=== PATIENT | female | born 1940 | race Caucasian/White ===

== ENCOUNTER 2020-09-15 16:11 | Inpatient (IN) ==
[2020-09-15 18:09] LABS: ABS Basophils 0.1 10^3/ul (0-0.2); ABS Eosinophils 0.1 10^3/ul (0-0.6); ABS Lymphocytes 0.7 10^3/ul (1.0-4.8); ABS Monocytes 0.7 10^3/ul (0-0.8); ABS Neutrophils 9.3 10^3/ul (1.5-7.7); Eosinophil % 0.9 %; Hematocrit 33 % (35-47); Hemoglobin 10.8 g/dL (12.0-16.0); Lymphocyte % 6.5 %; Mean Corpuscular HGB Conc 33 g/dL (31-36); Mean Corpuscular Hemoglobin 31 pg (27-31); Mean Corpuscular Volume 93 fL (80-97); Mean Platelet Volume 6.8 fL (7.4-10.4); Platelet Count 482 10^3/uL (150-450); Red Blood Count 3.53 10^6 /uL (3.70-4.87); Red Cell Distribution Width 15 % (10-15); White Blood Count 10.9 10^3/uL (3.5-10.8)
[2020-09-15 18:14] LABS: INR 1.07 (0.82-1.09)
[2020-09-15 18:22] LABS: Urine Appearance Clear; Urine Bilirubin Negative (Negative); Urine Blood Negative (Negative); Urine Color Yellow; Urine Glucose Negative (Negative); Urine Ketones Negative (Negative); Urine Nitrite Negative (Negative); Urine Protein Negative (Negative); Urine Specific Gravity 1.024 (1.010-1.030); Urine Urobilinogen Negative (Negative)
[2020-09-15 18:26] LABS: Albumin 3.1 g/dL (3.2-5.2); BUN/Creatinine Ratio 53.7 (8-20); Calcium 9.3 mg/dL (8.6-10.3); EGFR African American 102.5 (>60); EGFR Non-African American 84.7 (>60); Magnesium 2.1 mg/dL (1.9-2.7); Potassium 4.2 mmol/L (3.5-5.0); Total Protein 6.9 g/dL (6.4-8.9)
[2020-09-15 18:27] LABS: Albumin/Globulin Ratio 0.8 (1-3); Globulin 3.8 g/dL (2-4); Total Bilirubin 0.6 mg/dL (0.2-1.0)
[2020-09-15] MEDS ORDERED: Ondansetron 4 mg VIAL 2 MG/ML 2 ml VIAL IV PRN (20:04)
[2020-09-15] MEDS ORDERED: Azithromycin 500 mg/250 ml NS 500 MG/250 ML BAG IVPB SCH (21:00)
[2020-09-15 21:31] LABS: Hematocrit 30 % (35-47); Hemoglobin 9.7 g/dL (12.0-16.0)
[2020-09-15 22:18] LABS: Influenza A Molecular Negative (Negative); Influenza B Molecular Negative (Negative)
[2020-09-15] MEDS: Heparin 5000 UNITS/ML 1 mL VIAL SUBCUT SCH (22:31)
[2020-09-16 00:09] LABS: Urine Appearance Cloudy; Urine Bilirubin Negative (Negative); Urine Blood 2+ (Negative); Urine Color Yellow; Urine Glucose Negative (Negative); Urine Ketones Negative (Negative); Urine Nitrite Negative (Negative); Urine Protein Negative (Negative); Urine Specific Gravity 1.024 (1.010-1.030); Urine Urobilinogen Positive (Negative)
[2020-09-16 00:16] LABS: Urine Bacteria Absent (Absent); Urine Red Blood Cell 3+(>10/hpf) (Absent); Urine Squamous Epithelial Cell Present (Absent); Urine White Blood Cell 2+(11-20/hpf) (Absent)
[2020-09-16 00:20] LABS: Activated Partial Thrombo Time 58.1 seconds (26.0-38.0); INR 1.1 (0.82-1.09)
[2020-09-16] MEDS: Lidocaine PATCH 5% PATCH TRANSDERM SCH ×2 (00:32→08:20)
[2020-09-16] MEDS: Heparin 5000 UNITS/ML 1 mL VIAL SUBCUT SCH ×3 (05:34→21:44)
[2020-09-16 06:35] LABS: ABS Basophils 0.1 10^3/ul (0-0.2); ABS Eosinophils 0.1 10^3/ul (0-0.6); ABS Lymphocytes 0.9 10^3/ul (1.0-4.8); ABS Monocytes 0.6 10^3/ul (0-0.8); ABS Neutrophils 7.1 10^3/ul (1.5-7.7); Eosinophil % 1.5 %; Hematocrit 28 % (35-47); Hemoglobin 9.2 g/dL (12.0-16.0); Lymphocyte % 10.4 %; Mean Corpuscular HGB Conc 33 g/dL (31-36); Mean Corpuscular Hemoglobin 31 pg (27-31); Mean Corpuscular Volume 92 fL (80-97); Mean Platelet Volume 6.8 fL (7.4-10.4); Platelet Count 398 10^3/uL (150-450); Red Blood Count 3.01 10^6 /uL (3.70-4.87); Red Cell Distribution Width 15 % (10-15); White Blood Count 8.8 10^3/uL (3.5-10.8)
[2020-09-16 06:48] LABS: BUN/Creatinine Ratio 53.7 (8-20); Calcium 8.5 mg/dL (8.6-10.3); EGFR African American 131.4 (>60); EGFR Non-African American 108.6 (>60); Potassium 3.9 mmol/L (3.5-5.0)
[2020-09-16] MEDS ORDERED: Lidocaine Patch REMOVE PATCH PATCH OFF ONE (08:30)
[2020-09-16] MEDS ORDERED: Aspirin EC 81 mg TAB.EC (enteric coated) PO SCH (09:00)
[2020-09-16 17:09] LABS: ABS Basophils 0.1 10^3/ul (0-0.2); ABS Eosinophils 0.1 10^3/ul (0-0.6); ABS Lymphocytes 0.7 10^3/ul (1.0-4.8); ABS Monocytes 0.7 10^3/ul (0-0.8); ABS Neutrophils 9.4 10^3/ul (1.5-7.7); Eosinophil % 0.6 %; Hematocrit 28 % (35-47); Hemoglobin 9.7 g/dL (12.0-16.0); Lymphocyte % 6.6 %; Mean Corpuscular HGB Conc 34 g/dL (31-36); Mean Corpuscular Hemoglobin 31 pg (27-31); Mean Corpuscular Volume 91 fL (80-97); Mean Platelet Volume 6.3 fL (7.4-10.4); Platelet Count 440 10^3/uL (150-450); Red Blood Count 3.07 10^6 /uL (3.70-4.87); Red Cell Distribution Width 15 % (10-15)
[2020-09-16] MEDS: Lidocaine Patch REMOVE PATCH PATCH OFF SCH (21:42)
[2020-09-17 04:53] LABS: ABS Basophils 0.1 10^3/ul (0-0.2); ABS Eosinophils 0.1 10^3/ul (0-0.6); ABS Lymphocytes 0.9 10^3/ul (1.0-4.8); ABS Monocytes 0.7 10^3/ul (0-0.8); ABS Neutrophils 8.4 10^3/ul (1.5-7.7); Eosinophil % 1.3 %; Hematocrit 27 % (35-47); Hemoglobin 8.9 g/dL (12.0-16.0); Lymphocyte % 8.8 %; Mean Corpuscular HGB Conc 33 g/dL (31-36); Mean Corpuscular Hemoglobin 30 pg (27-31); Mean Corpuscular Volume 92 fL (80-97); Mean Platelet Volume 6.8 fL (7.4-10.4); Platelet Count 426 10^3/uL (150-450); Red Blood Count 2.97 10^6 /uL (3.70-4.87); Red Cell Distribution Width 15 % (10-15); White Blood Count 10.3 10^3/uL (3.5-10.8)
[2020-09-17 05:10] LABS: BUN/Creatinine Ratio 43.9 (8-20); Calcium 8.7 mg/dL (8.6-10.3); EGFR African American 123.5 (>60); EGFR Non-African American 102.1 (>60)
[2020-09-17] MEDS: Heparin 5000 UNITS/ML 1 mL VIAL SUBCUT SCH ×3 (05:57→20:42)
[2020-09-17] MEDS: Lidocaine PATCH 5% PATCH TRANSDERM SCH (08:16)
[2020-09-17] MEDS: Lidocaine Patch REMOVE PATCH PATCH OFF SCH (20:43)
[2020-09-18 04:44] LABS: ABS Basophils 0.1 10^3/ul (0-0.2); ABS Eosinophils 0.1 10^3/ul (0-0.6); ABS Lymphocytes 0.8 10^3/ul (1.0-4.8); ABS Monocytes 0.9 10^3/ul (0-0.8); ABS Neutrophils 10.3 10^3/ul (1.5-7.7); Hematocrit 28 % (35-47); Hemoglobin 9.3 g/dL (12.0-16.0); Lymphocyte % 6.6 %; Mean Corpuscular HGB Conc 33 g/dL (31-36); Mean Corpuscular Hemoglobin 30 pg (27-31); Mean Corpuscular Volume 92 fL (80-97); Mean Platelet Volume 7.2 fL (7.4-10.4); Platelet Count 452 10^3/uL (150-450); Red Blood Count 3.08 10^6 /uL (3.70-4.87); Red Cell Distribution Width 15 % (10-15); White Blood Count 12.2 10^3/uL (3.5-10.8)
[2020-09-18] MEDS: Heparin 5000 UNITS/ML 1 mL VIAL SUBCUT SCH ×2 (05:18→14:25)
[2020-09-18] MEDS: Lidocaine PATCH 5% PATCH TRANSDERM SCH (08:41)
[2020-09-18] MEDS: Lidocaine Patch REMOVE PATCH PATCH OFF SCH (21:54)
[2020-09-19] MEDS: Lidocaine PATCH 5% PATCH TRANSDERM SCH (08:35)
[2020-09-19] MEDS: Lidocaine Patch REMOVE PATCH PATCH OFF SCH (19:40)
[2020-09-20 03:05] LABS: Urine Appearance Cloudy; Urine Bilirubin Negative (Negative); Urine Blood 2+ (Negative); Urine Color Amber; Urine Glucose Negative (Negative); Urine Ketones Negative (Negative); Urine Nitrite Positive (Negative); Urine Protein 1+(30 mg/dL) (Negative); Urine Specific Gravity 1.017 (1.010-1.030); Urine Urobilinogen Positive (Negative)
[2020-09-20 03:07] LABS: Urine Bacteria 1+ (Absent); Urine Red Blood Cell 1+(3-5/hpf) (Absent); Urine White Blood Cell 3+(>20/hpf) (Absent)
[2020-09-20 04:49] LABS: ABS Basophils 0.1 10^3/ul (0-0.2); ABS Eosinophils 0.1 10^3/ul (0-0.6); ABS Lymphocytes 0.8 10^3/ul (1.0-4.8); ABS Monocytes 0.6 10^3/ul (0-0.8); ABS Neutrophils 7.3 10^3/ul (1.5-7.7); Eosinophil % 1.5 %; Hematocrit 28 % (35-47); Hemoglobin 9.3 g/dL (12.0-16.0); Lymphocyte % 8.5 %; Mean Corpuscular HGB Conc 33 g/dL (31-36); Mean Corpuscular Hemoglobin 31 pg (27-31); Mean Corpuscular Volume 94 fL (80-97); Platelet Count 435 10^3/uL (150-450); Red Blood Count 3.01 10^6 /uL (3.70-4.87); Red Cell Distribution Width 15 % (10-15); White Blood Count 8.9 10^3/uL (3.5-10.8)
[2020-09-20 05:06] LABS: BUN/Creatinine Ratio 39.3 (8-20); Calcium 8.7 mg/dL (8.6-10.3); EGFR African American 114.2 (>60); EGFR Non-African American 94.4 (>60)
[2020-09-20] MEDS: Lidocaine PATCH 5% PATCH TRANSDERM SCH (07:20)
[2020-09-20] MEDS ORDERED: Magnesium Hydroxide LIQ 30 ML UDC PO ONE (10:57)
[2020-09-21 11:36] VITALS: BP 111/52
== END 2020-09-21 14:15 | disposition home health service (06) | DRG 536 ==
LOC: ED 16:11 → MED 19:58 → SSU 09-16 11:40
PROVIDERS: ADMIT Internal Medicine Interventional Cardiology; ATTEND Internal Medicine

== ENCOUNTER 2021-09-09 17:51 | Inpatient (IN) ==
[2021-09-09] MEDS ORDERED: Ondansetron 4 mg VIAL 2 MG/ML 2 ml VIAL IV PRN (20:45)
[2021-09-09 20:51] LABS: ABS Lymphocytes 0.7 10^3/ul (1.0-4.8); ABS Monocytes 0.5 10^3/ul (0-0.8); ABS Neutrophils 9.4 10^3/ul (1.5-7.7); Eosinophil % 0.1 %; Hematocrit 33 % (35-47); Hemoglobin 11.5 g/dL (12.0-16.0); Lymphocyte % 6.8 %; Mean Corpuscular HGB Conc 34 g/dL (31-36); Mean Corpuscular Hemoglobin 32 pg (27-31); Mean Corpuscular Volume 94 fL (80-97); Mean Platelet Volume 6.9 fL (7.4-10.4); Platelet Count 230 10^3/uL (150-450); Red Blood Count 3.56 10^6 /uL (3.70-4.87); Red Cell Distribution Width 13 % (10-15); White Blood Count 10.7 10^3/uL (3.5-10.8)
[2021-09-09] MEDS ORDERED: Lactated Ringers 1000 ml BAG 1,000 ML IV SCH (21:00)
[2021-09-09 21:06] LABS: Activated Partial Thrombo Time 31.7 seconds (26.0-38.0); INR 1.05 (0.86-1.15)
[2021-09-09 21:21] LABS: Albumin 3.8 g/dL (3.2-5.2); Albumin/Globulin Ratio 1.3 (1-3); Calcium 9.1 mg/dL (8.6-10.3); Potassium 4.2 mmol/L (3.5-5.0); Total Bilirubin 0.6 mg/dL (0.2-1.0); Total Protein 6.8 g/dL (6.4-8.9); eGFR CKD-EPI 92.4 (>60)
[2021-09-09 22:09] LABS: TSH Ultra Thyroid Stim Horm 3.13 mcIU/mL (0.34-5.60)
[2021-09-09 22:15] LABS: Osmolality Serum 270 mOsm/kg (275-295)
[2021-09-09] MEDS: Heparin 5000 UNITS/ML 1 mL VIAL SUBCUT SCH (22:30)
[2021-09-10 04:20] LABS: ABS Basophils 0.1 10^3/ul (0-0.2); ABS Lymphocytes 0.9 10^3/ul (1.0-4.8); ABS Monocytes 0.5 10^3/ul (0-0.8); ABS Neutrophils 7.5 10^3/ul (1.5-7.7); Hematocrit 30 % (35-47); Hemoglobin 10.1 g/dL (12.0-16.0); Lymphocyte % 9.6 %; Mean Corpuscular HGB Conc 34 g/dL (31-36); Mean Corpuscular Hemoglobin 32 pg (27-31); Mean Corpuscular Volume 93 fL (80-97); Platelet Count 199 10^3/uL (150-450); Red Cell Distribution Width 13 % (10-15); White Blood Count 8.9 10^3/uL (3.5-10.8)
[2021-09-10 04:26] LABS: INR 1.13 (0.86-1.15)
[2021-09-10] MEDS: Acetaminophen IV 1 GM/100ML 100 ML IV PRN ×2 (04:33→11:32)
[2021-09-10 04:52] LABS: Calcium 8.7 mg/dL (8.6-10.3); Potassium 4.3 mmol/L (3.5-5.0); eGFR CKD-EPI 94.2 (>60)
[2021-09-10] MEDS: Heparin 5000 UNITS/ML 1 mL VIAL SUBCUT SCH ×3 (06:35→22:23)
[2021-09-10 07:25] LABS: Urine Appearance Clear; Urine Bilirubin Negative (Negative); Urine Blood Negative (Negative); Urine Color Yellow; Urine Glucose Negative (Negative); Urine Ketones 1+ (Negative); Urine Nitrite Negative (Negative); Urine Protein Negative (Negative); Urine Specific Gravity 1.017 (1.002-1.030); Urine Urobilinogen Negative (Negative)
[2021-09-10 08:06] LABS: Urine Creatinine Concentration 49.22 mg/dL
[2021-09-10 08:52] LABS: Urine Osmo 643 mOsm/kg (150-1150)
[2021-09-10] MEDS ORDERED: Albuterol HFA INHALER 8 gm MDI INH PRN (08:54)
[2021-09-10] MEDS: Pantoprazole VIAL 40 MG VIAL IV SCH (11:26)
[2021-09-10] MEDS: NS 0.9% 1000 ml BAG 1,000 ML IV SCH (11:28)
[2021-09-10 14:30] LABS: Uric Acid 3.4 mg/dL (2.3-6.6)
[2021-09-10 18:23] LABS: Calcium 8.5 mg/dL (8.6-10.3); Potassium 4.1 mmol/L (3.5-5.0)
[2021-09-10 18:29] LABS: eGFR CKD-EPI 92.4 (>60)
[2021-09-11] MEDS: NS 0.9% 1000 ml BAG 1,000 ML IV SCH (03:14)
[2021-09-11 05:51] LABS: ABS Eosinophils 0.1 10^3/ul (0-0.6); ABS Lymphocytes 0.7 10^3/ul (1.0-4.8); ABS Monocytes 0.8 10^3/ul (0-0.8); ABS Neutrophils 5.9 10^3/ul (1.5-7.7); Eosinophil % 0.7 %; Hematocrit 25 % (35-47); Hemoglobin 8.5 g/dL (12.0-16.0); Lymphocyte % 9.7 %; Mean Corpuscular HGB Conc 34 g/dL (31-36); Mean Corpuscular Hemoglobin 32 pg (27-31); Mean Corpuscular Volume 95 fL (80-97); Mean Platelet Volume 7.8 fL (7.4-10.4); Platelet Count 145 10^3/uL (150-450); Red Blood Count 2.65 10^6 /uL (3.70-4.87); Red Cell Distribution Width 13 % (10-15); White Blood Count 7.5 10^3/uL (3.5-10.8)
[2021-09-11 06:10] LABS: Calcium 8.1 mg/dL (8.6-10.3); Magnesium 1.6 mg/dL (1.9-2.7); Potassium 3.9 mmol/L (3.5-5.0); eGFR CKD-EPI 93.7 (>60)
[2021-09-11] MEDS ORDERED: Magnesium Sulfate 2 gm BAG 2 GM/50 ML BAG IVPB ONE (06:24)
[2021-09-11 09:21] LABS: Hematocrit 28 % (35-47); Hemoglobin 9.4 g/dL (12.0-16.0)
[2021-09-11] MEDS: Pantoprazole VIAL 40 MG VIAL IV SCH (09:28)
[2021-09-11] MEDS ORDERED: Lidocaine 2% PF 5 ML VIAL ONE (11:57)
[2021-09-11] MEDS ORDERED: Propofol 10 MG/ML 20 ML BTL ONE (11:57)
[2021-09-11] MEDS ORDERED: fentaNYL 250 mcg/5 ml 50 MCG/ML 5 ml VIAL (250 MCG) ONE (11:57)
[2021-09-11] MEDS ORDERED: Rocuronium 50 mg VIAL 10 mg/ml 5 ml VIAL (50 mg) ONE (12:10)
[2021-09-11] MEDS ORDERED: Clindamycin 900 MG/D5W BAG 900 MG/50 ML BAG IVPB ONE (12:48)
[2021-09-11] MEDS ORDERED: Albumin Human 5% 12.5 GM/250 ML BTL IV ONE (13:21)
[2021-09-11] MEDS ORDERED: Ondansetron 4 mg VIAL 2 MG/ML 2 ml VIAL ONE (14:18)
[2021-09-11] MEDS ORDERED: Dexamethasone IV 4 MG/ML VIAL 1 ml VIAL ONE (14:18)
[2021-09-11] MEDS ORDERED: Acetaminophen IV 1 GM/100ML 100 ML IV ONE (14:48)
[2021-09-11] MEDS ORDERED: fentaNYL 100 mcg/2 ml 50 MCG/ML VIAL IV PRN (15:01)
[2021-09-11] MEDS ORDERED: Naloxone 0.4 mg VIAL 0.4 mg/ml 1 ml VIAL IV PRN (15:01)
[2021-09-11] MEDS ORDERED: Ondansetron 4 mg VIAL 2 MG/ML 2 ml VIAL IV PRN (15:01)
[2021-09-11] MEDS ORDERED: Phenylephrine 40 mcg/mL 10mL (400mcg) SYRINGE ONE (15:24)
[2021-09-11] MEDS ORDERED: Phenylephrine IV 10 MG/ML 1 ml VIAL ONE (15:24)
[2021-09-11] MEDS ORDERED: Bupivacaine 0.5% SDV PF 30ML VIAL ONE (15:40)
[2021-09-11 15:56] LABS: Hematocrit 23 % (35-47); Hemoglobin 7.8 g/dL (12.0-16.0); Platelet Count 127 10^3/uL (150-450)
[2021-09-11 22:06] LABS: Hematocrit 24 % (35-47)
[2021-09-11] MEDS: Clindamycin 600 MG/D5W BAG IV SCH (22:37)
[2021-09-12] MEDS: Clindamycin 600 MG/D5W BAG IV SCH ×2 (05:56→14:02)
[2021-09-12 06:03] LABS: Hematocrit 21 % (35-47); Hemoglobin 7.1 g/dL (12.0-16.0); Mean Platelet Volume 8.1 fL (7.4-10.4); Platelet Count 133 10^3/uL (150-450)
[2021-09-12 06:28] LABS: Calcium 8.5 mg/dL (8.6-10.3); Magnesium 2.2 mg/dL (1.9-2.7); Potassium 4.8 mmol/L (3.5-5.0); eGFR CKD-EPI 61.7 (>60)
[2021-09-12] MEDS: Pantoprazole VIAL 40 MG VIAL IV SCH (09:12)
[2021-09-12 12:03] LABS: Hematocrit 22 % (35-47); Hemoglobin 7.2 g/dL (12.0-16.0)
[2021-09-12] MEDS: Enoxaparin 40 MG/0.4 ML SYR SUBCUT SCH (13:03)
[2021-09-12] MEDS ORDERED: NS 0.9% 1000 ml BAG 1,000 ML IV SCH (15:45)
[2021-09-12 16:06] LABS: Hematocrit 23 % (35-47); Hemoglobin 7.5 g/dL (12.0-16.0)
[2021-09-12] MEDS: Acetaminophen IV 1 GM/100ML 100 ML IV PRN (16:58)
[2021-09-13 05:40] LABS: ABS Eosinophils 0.1 10^3/ul (0-0.6); ABS Lymphocytes 0.9 10^3/ul (1.0-4.8); ABS Neutrophils 7.3 10^3/ul (1.5-7.7); Eosinophil % 1.5 %; Hematocrit 23 % (35-47); Hemoglobin 7.9 g/dL (12.0-16.0); Lymphocyte % 9.4 %; Mean Corpuscular HGB Conc 35 g/dL (31-36); Mean Corpuscular Hemoglobin 34 pg (27-31); Mean Corpuscular Volume 97 fL (80-97); Mean Platelet Volume 7.7 fL (7.4-10.4); Platelet Count 144 10^3/uL (150-450); Red Blood Count 2.33 10^6 /uL (3.70-4.87); Red Cell Distribution Width 14 % (10-15); White Blood Count 9.4 10^3/uL (3.5-10.8)
[2021-09-13 06:15] LABS: Calcium 8.4 mg/dL (8.6-10.3); Potassium 4.6 mmol/L (3.5-5.0); eGFR CKD-EPI 68.8 (>60)
[2021-09-13] MEDS: Pantoprazole VIAL 40 MG VIAL IV SCH (08:01)
[2021-09-13] MEDS: Acetaminophen IV 1 GM/100ML 100 ML IV PRN ×2 (12:18→20:14)
[2021-09-13] MEDS: Enoxaparin 40 MG/0.4 ML SYR SUBCUT SCH (12:18)
[2021-09-13] MEDS ORDERED: Magnesium Hydroxide LIQ 30 ML UDC PO PRN (21:57)
[2021-09-13] MEDS ORDERED: Senna TAB 8.6 mg TAB PO ONE (21:57)
[2021-09-13] MEDS ORDERED: Senna TAB 8.6 mg TAB PO PRN (22:02)
[2021-09-14 06:09] LABS: ABS Eosinophils 0.1 10^3/ul (0-0.6); ABS Lymphocytes 1.1 10^3/ul (1.0-4.8); ABS Monocytes 0.7 10^3/ul (0-0.8); ABS Neutrophils 4.8 10^3/ul (1.5-7.7); Eosinophil % 1.1 %; Hematocrit 19 % (35-47); Lymphocyte % 16.3 %; Mean Corpuscular HGB Conc 36 g/dL (31-36); Mean Corpuscular Hemoglobin 36 pg (27-31); Mean Corpuscular Volume 98 fL (80-97); Mean Platelet Volume 7.7 fL (7.4-10.4); Nucleated Red Blood Cells % 0.1; Platelet Count 158 10^3/uL (150-450); Red Blood Count 1.96 10^6 /uL (3.70-4.87); Red Cell Distribution Width 14 % (10-15); White Blood Count 6.8 10^3/uL (3.5-10.8)
[2021-09-14 06:21] LABS: Calcium 8.3 mg/dL (8.6-10.3); Potassium 4.3 mmol/L (3.5-5.0); eGFR CKD-EPI 88.7 (>60)
[2021-09-14 14:31] LABS: Hematocrit 22 % (35-47); Hemoglobin 7.6 g/dL (12.0-16.0)
[2021-09-14] MEDS: Enoxaparin 40 MG/0.4 ML SYR SUBCUT SCH (15:33)
[2021-09-15 05:35] LABS: ABS Eosinophils 0.1 10^3/ul (0-0.6); ABS Lymphocytes 1.1 10^3/ul (1.0-4.8); ABS Monocytes 0.9 10^3/ul (0-0.8); ABS Neutrophils 5.1 10^3/ul (1.5-7.7); Eosinophil % 0.8 %; Hematocrit 21 % (35-47); Lymphocyte % 14.9 %; Mean Corpuscular HGB Conc 34 g/dL (31-36); Mean Corpuscular Hemoglobin 33 pg (27-31); Mean Corpuscular Volume 97 fL (80-97); Mean Platelet Volume 7.3 fL (7.4-10.4); Nucleated Red Blood Cells % 0.1; Platelet Count 190 10^3/uL (150-450); Red Cell Distribution Width 14 % (10-15); White Blood Count 7.1 10^3/uL (3.5-10.8)
[2021-09-15 06:03] LABS: Calcium 8.4 mg/dL (8.6-10.3); Potassium 4.5 mmol/L (3.5-5.0); eGFR CKD-EPI 91.6 (>60)
[2021-09-15 14:39] LABS: Hematocrit 22 % (35-47); Hemoglobin 7.9 g/dL (12.0-16.0)
[2021-09-15] MEDS ORDERED: NS 0.9% 1000 ml BAG 1,000 ML IV ONE (14:59)
[2021-09-15] MEDS: Enoxaparin 40 MG/0.4 ML SYR SUBCUT SCH (15:11)
[2021-09-15] MEDS ORDERED: NS 0.9% 1000 ml BAG 1,000 ML IV SCH ×3 (16:30→17:40)
[2021-09-16 04:50] LABS: Hematocrit 25 % (35-47); Hemoglobin 9.3 g/dL (12.0-16.0); Mean Corpuscular HGB Conc 37 g/dL (31-36); Mean Corpuscular Hemoglobin 36 pg (27-31); Mean Corpuscular Volume 98 fL (80-97); Mean Platelet Volume 7.1 fL (7.4-10.4); Platelet Count 228 10^3/uL (150-450); Red Blood Count 2.57 10^6 /uL (3.70-4.87); Red Cell Distribution Width 15 % (10-15)
[2021-09-16 05:18] LABS: Calcium 8.3 mg/dL (8.6-10.3); Potassium 4.7 mmol/L (3.5-5.0); eGFR CKD-EPI 87.4 (>60)
[2021-09-16] MEDS ORDERED: Enoxaparin 40 MG/0.4 ML SYR SUBCUT SCH (15:00)
[2021-09-17 06:08] LABS: ABS Monocytes 1.1 10^3/ul (0-0.8); ABS Neutrophils 7.2 10^3/ul (1.5-7.7); ABS Nucleated RBC 0.1 10^3/ul; Hematocrit 26 % (35-47); Hemoglobin 8.9 g/dL (12.0-16.0); Lymphocyte % 10.9 %; Mean Corpuscular HGB Conc 34 g/dL (31-36); Mean Corpuscular Hemoglobin 33 pg (27-31); Mean Corpuscular Volume 96 fL (80-97); Mean Platelet Volume 7.1 fL (7.4-10.4); Nucleated Red Blood Cells % 1.4; Platelet Count 286 10^3/uL (150-450); Red Cell Distribution Width 15 % (10-15); White Blood Count 9.4 10^3/uL (3.5-10.8)
[2021-09-17 06:27] LABS: Calcium 8.7 mg/dL (8.6-10.3); Potassium 4.7 mmol/L (3.5-5.0); eGFR CKD-EPI 79.9 (>60)
[2021-09-17 11:14] VITALS: BP 95/59
== END 2021-09-17 10:00 | DRG 481 ==
LOC: ED 17:51 → EDHOLD 20:39 → SUATTDRO 20:39 → SSU 23:42
PROVIDERS: ADMIT Hospitalist; ATTEND Student in an Organized Health Care Education/Training Program

== ENCOUNTER 2021-09-17 08:18 | Inpatient (IN) ==
[2021-09-17] MEDS ORDERED: Senna TAB 8.6 mg TAB PO PRN (15:29)
[2021-09-17] MEDS: Enoxaparin 40 MG/0.4 ML SYR SUBCUT SCH (16:12)
[2021-09-17] MEDS ORDERED: Magnesium Hydroxide LIQ 30 ML UDC PO PRN (19:07)
[2021-09-18 13:52] LABS: Urine Appearance Cloudy; Urine Bilirubin Negative (Negative); Urine Blood 1+ (Negative); Urine Color Amber; Urine Glucose Negative (Negative); Urine Ketones Negative (Negative); Urine Nitrite Negative (Negative); Urine Protein 1+(30 mg/dL) (Negative); Urine Specific Gravity 1.018 (1.002-1.030); Urine Urobilinogen Negative (Negative)
[2021-09-18 14:00] LABS: Urine Bacteria 3+ (Absent); Urine Red Blood Cell Trace(0-2/hpf) (Absent); Urine Squamous Epithelial Cell Present (Absent); Urine Transitional Epithelial Present (Absent); Urine White Blood Cell 3+(>20/hpf) (Absent)
[2021-09-18] MEDS: Enoxaparin 40 MG/0.4 ML SYR SUBCUT SCH (16:19)
[2021-09-18] MEDS: Sulfamethox/Trimethoprim DS TAB 800/160 mg PO SCH (21:04)
[2021-09-19 06:50] LABS: Hematocrit 28 % (35-47); Hemoglobin 9.7 g/dL (12.0-16.0); Mean Corpuscular HGB Conc 35 g/dL (31-36); Mean Corpuscular Hemoglobin 35 pg (27-31); Mean Corpuscular Volume 100 fL (80-97); Mean Platelet Volume 7.6 fL (7.4-10.4); Platelet Count 333 10^3/uL (150-450); Red Blood Count 2.77 10^6 /uL (3.70-4.87); Red Cell Distribution Width 15 % (10-15); White Blood Count 8.4 10^3/uL (3.5-10.8)
[2021-09-19 07:06] LABS: ABS Lymphocytes 0.9 10^3/ul (1.0-4.8); ABS Monocytes 0.8 10^3/ul (0-0.8); ABS Neutrophils 6.5 10^3/ul (1.5-7.7); Eosinophil % 0.5 %; Lymphocyte % 11.3 %
[2021-09-19 07:39] LABS: Albumin 3.2 g/dL (3.2-5.2); Albumin/Globulin Ratio 1.2 (1-3); Calcium 8.8 mg/dL (8.6-10.3); Globulin 2.7 g/dL (2-4); Potassium 4.1 mmol/L (3.5-5.0); Total Bilirubin 1.5 mg/dL (0.2-1.0); Total Protein 5.9 g/dL (6.4-8.9); eGFR CKD-EPI 71.8 (>60)
[2021-09-19] MEDS: Sulfamethox/Trimethoprim DS TAB 800/160 mg PO SCH ×2 (08:08→20:43)
[2021-09-19 08:16] LABS: Anisocytosis 1+; Macrocytosis 1+; Polychromasia 2+
[2021-09-19 08:17] LABS: ABS Nucleated RBC 0.5 10^3/ul; Nucleated Red Blood Cells % 5.6
[2021-09-19] MEDS: D5NS 0.9% 1000 ml BAG 1,000 ML IV SCH (11:49)
[2021-09-19] MEDS: Enoxaparin 40 MG/0.4 ML SYR SUBCUT SCH (16:39)
[2021-09-20] MEDS: D5NS 0.9% 1000 ml BAG 1,000 ML IV SCH (01:23)
[2021-09-20] MEDS: Sulfamethox/Trimethoprim DS TAB 800/160 mg PO SCH ×2 (09:25→20:25)
[2021-09-20] MEDS: Enoxaparin 40 MG/0.4 ML SYR SUBCUT SCH (16:31)
[2021-09-21] MEDS: Sulfamethox/Trimethoprim DS TAB 800/160 mg PO SCH ×2 (07:39→20:42)
[2021-09-21] MEDS ORDERED: Albuterol HFA INHALER 8 gm MDI INH PRN (11:39)
[2021-09-21] MEDS: D5NS 0.9% 1000 ml BAG 1,000 ML IV SCH (15:12)
[2021-09-21] MEDS: Enoxaparin 40 MG/0.4 ML SYR SUBCUT SCH (16:19)
[2021-09-22] MEDS: D5NS 0.9% 1000 ml BAG 1,000 ML IV SCH (05:25)
[2021-09-22] MEDS: Sulfamethox/Trimethoprim DS TAB 800/160 mg PO SCH ×2 (07:43→20:15)
[2021-09-22] MEDS: SPIRIVA Respimat (tiotropium) 2.5 mcg/inh Inhaler INH SCH (07:51)
[2021-09-22] MEDS: Enoxaparin 40 MG/0.4 ML SYR SUBCUT SCH (16:54)
[2021-09-22 20:50] LABS: Hematocrit 28 % (35-47); Hemoglobin 9.4 g/dL (12.0-16.0); Mean Corpuscular HGB Conc 33 g/dL (31-36); Mean Corpuscular Hemoglobin 33 pg (27-31); Mean Corpuscular Volume 101 fL (80-97); Mean Platelet Volume 7.9 fL (7.4-10.4); Platelet Count 335 10^3/uL (150-450); Red Blood Count 2.81 10^6 /uL (3.70-4.87); Red Cell Distribution Width 15 % (10-15); White Blood Count 9.4 10^3/uL (3.5-10.8)
[2021-09-22 21:15] LABS: Anisocytosis 1+; Macrocytosis 1+; Polychromasia 1+
[2021-09-22 21:16] LABS: ABS Basophils 0.1 10^3/ul (0-0.2); ABS Lymphocytes 0.5 10^3/ul (1.0-4.8); ABS Monocytes 0.4 10^3/ul (0-0.8); ABS Neutrophils 8.4 10^3/ul (1.5-7.7); ABS Nucleated RBC 1.7 10^3/ul; Eosinophil % 0.1 %; Lymphocyte % 5.4 %; Nucleated Red Blood Cells % 17.5
[2021-09-23] MEDS: SPIRIVA Respimat (tiotropium) 2.5 mcg/inh Inhaler INH SCH (09:33)
[2021-09-23] MEDS: Sulfamethox/Trimethoprim DS TAB 800/160 mg PO SCH (09:50)
[2021-09-23 13:09] LABS: Hematocrit 31 % (35-47); Hemoglobin 10.3 g/dL (12.0-16.0); Mean Corpuscular HGB Conc 34 g/dL (31-36); Mean Corpuscular Hemoglobin 35 pg (27-31); Mean Corpuscular Volume 104 fL (80-97); Mean Platelet Volume 8.2 fL (7.4-10.4); Platelet Count 328 10^3/uL (150-450); Red Blood Count 2.94 10^6 /uL (3.70-4.87); Red Cell Distribution Width 16 % (10-15)
[2021-09-23 13:10] LABS: PCO2 Arterial 31 mmHg (35-45)
[2021-09-23 13:15] LABS: ABS Lymphocytes 0.6 10^3/ul (1.0-4.8); ABS Monocytes 0.4 10^3/ul (0-0.8); ABS Neutrophils 7.9 10^3/ul (1.5-7.7); Eosinophil % 0.2 %; Lymphocyte % 6.5 %
[2021-09-23 13:22] LABS: PO2 Arterial 51 mmHg (80-100)
[2021-09-23 13:41] LABS: Albumin 3.5 g/dL (3.2-5.2); Albumin/Globulin Ratio 1.3 (1-3); Calcium 9.1 mg/dL (8.6-10.3); Globulin 2.7 g/dL (2-4); Potassium 4.3 mmol/L (3.5-5.0); Total Bilirubin 1.1 mg/dL (0.2-1.0); Total Protein 6.2 g/dL (6.4-8.9); eGFR CKD-EPI 52.8 (>60)
[2021-09-23 13:47] LABS: ABS Nucleated RBC 2.5 10^3/ul; Nucleated Red Blood Cells % 27.8
[2021-09-23] MEDS ORDERED: Iodixanol (CONTRAST) 320 MG/ML 100 ML SDV IV ONE (13:55)
[2021-09-23 14:26] LABS: Anisocytosis 2+; Hypochromasia 2+; Polychromasia 1+
[2021-09-23 15:15] VITALS: BP 107/60
== END 2021-09-23 15:33 | disposition short-term general hospital (02) | DRG 560 ==
LOC: PMRU 13:25 → ICU 09-23 13:13 → UNDODISIN 09-23 15:24
PROVIDERS: ADMIT Physical Medicine & Rehabilitation; ATTEND Physical Medicine & Rehabilitation

== ENCOUNTER 2021-09-23 15:34 | Inpatient (IN) ==
[2021-09-23] MEDS ORDERED: Furosemide 20 mg/2 ml IV VIAL IV ONE (16:59)
[2021-09-23] MEDS ORDERED: Acetylcysteine INHALATION SOL 200 MG/ML NEB.SOLN 10 ML INH PRN (17:25)
[2021-09-23] MEDS ORDERED: Norepinephrine 16MCG/ML BAGD5W 4,000 MCG/250 ML BAG IV SCH (23:00)
[2021-09-24] MEDS: Albuterol 2.5mg/3 ml (0.083%) NEB.SOLN INH SCH ×3 (00:44→14:23)
[2021-09-24 02:17] LABS: PCO2 Arterial 28 mmHg (35-45)
[2021-09-24 02:20] LABS: PO2 Arterial 59 mmHg (80-100)
[2021-09-24 05:10] LABS: Hematocrit 30 % (35-47); Hemoglobin 9.9 g/dL (12.0-16.0); Mean Corpuscular HGB Conc 33 g/dL (31-36); Mean Corpuscular Hemoglobin 33 pg (27-31); Mean Corpuscular Volume 101 fL (80-97); Mean Platelet Volume 8.2 fL (7.4-10.4); Platelet Count 308 10^3/uL (150-450); Red Blood Count 2.99 10^6 /uL (3.70-4.87); Red Cell Distribution Width 15 % (10-15); White Blood Count 10.1 10^3/uL (3.5-10.8)
[2021-09-24 05:18] LABS: ABS Lymphocytes 0.6 10^3/ul (1.0-4.8); ABS Monocytes 0.5 10^3/ul (0-0.8); ABS Neutrophils 8.9 10^3/ul (1.5-7.7); ABS Nucleated RBC 1.3 10^3/ul; Eosinophil % 0.5 %; Lymphocyte % 5.9 %; Nucleated Red Blood Cells % 13.4
[2021-09-24 05:51] LABS: Albumin 3.4 g/dL (3.2-5.2); Albumin/Globulin Ratio 1.3 (1-3); Globulin 2.6 g/dL (2-4); Magnesium 2.3 mg/dL (1.9-2.7); Potassium 4.2 mmol/L (3.5-5.0); Total Bilirubin 1.1 mg/dL (0.2-1.0); eGFR CKD-EPI 46.9 (>60)
[2021-09-24] MEDS ORDERED: Furosemide 20 mg/2 ml IV VIAL IV SLOW PU ONE (07:42)
[2021-09-24] MEDS ORDERED: Vasopressin 100 UNITS in D5W 250 ml BAG 245 ML IV SCH (08:00)
[2021-09-24] MEDS: CMC:Selenium 200 mcg TAB (NF) PO SCH (09:50)
[2021-09-24] MEDS: Acetylcysteine 600mgCAP(RENAL) PO SCH ×2 (09:53→20:09)
[2021-09-24 12:11] LABS: Body Fluid Mono 6 %; Body Fluid NRBC 8; Body Fluid Other Cells 18; Body Fluid Total Cells Counted 200; Body Fluid WBC 52 /mcL
[2021-09-24 12:12] LABS: Body Fluid Appearance Cloudy; Body Fluid Color Yellow; Body Fluid Source Pleural Fluid
[2021-09-24] MEDS ORDERED: Albuterol 2.5mg/3 ml (0.083%) NEB.SOLN INH PRN (14:23)
[2021-09-24] MEDS ORDERED: Enoxaparin 40 MG/0.4 ML SYR SUBCUT SCH (18:00)
[2021-09-25 05:48] LABS: Hematocrit 29 % (35-47); Hemoglobin 9.4 g/dL (12.0-16.0); Mean Corpuscular HGB Conc 33 g/dL (31-36); Mean Corpuscular Hemoglobin 33 pg (27-31); Mean Corpuscular Volume 102 fL (80-97); Mean Platelet Volume 7.5 fL (7.4-10.4); Platelet Count 224 10^3/uL (150-450); Red Blood Count 2.82 10^6 /uL (3.70-4.87); Red Cell Distribution Width 16 % (10-15); White Blood Count 13.5 10^3/uL (3.5-10.8)
[2021-09-25 05:52] LABS: ABS Lymphocytes 0.6 10^3/ul (1.0-4.8); ABS Monocytes 0.3 10^3/ul (0-0.8); ABS Neutrophils 12.4 10^3/ul (1.5-7.7); ABS Nucleated RBC 0.6 10^3/ul; Eosinophil % 0.3 %; Lymphocyte % 4.7 %; Nucleated Red Blood Cells % 4.1
[2021-09-25 06:17] LABS: C Reactive Protein 93.19 mg/L (<8.01); Calcium 8.7 mg/dL (8.6-10.3); Magnesium 2.2 mg/dL (1.9-2.7); Potassium 3.9 mmol/L (3.5-5.0); eGFR CKD-EPI 43.3 (>60)
[2021-09-25] MEDS ORDERED: Dextrose 50% Syringe 50 ml 25 GM/50 ML SYRINGE IV PUSH PRN (07:22)
[2021-09-25] MEDS: CMC:Selenium 200 mcg TAB (NF) PO SCH (07:54)
[2021-09-25] MEDS: Acetylcysteine 600mgCAP(RENAL) PO SCH ×2 (07:54→23:03)
[2021-09-25] MEDS ORDERED: Furosemide 40 mg/4 ml IV VIAL IV SLOW PU ONE (09:50)
[2021-09-25 15:23] LABS: Glucose, BF 87 mg/dL
[2021-09-25 15:32] LABS: Fluid Type, Protein, Total PLEURAL FLUID; Total Protein, BF 1.6 g/dL
[2021-09-25 15:34] LABS: Lactate Dehydrogenase, BF 140 U/L
[2021-09-25] MEDS: Enoxaparin 30 MG/0.3 ML SYR SUBCUT SCH (17:09)
[2021-09-25] MEDS ORDERED: Lactated Ringers 500 ml BAG 500 ML IV SCH (20:00)
[2021-09-26] MEDS ORDERED: Linezolid 600 MG IVPREMIX(*) 600 MG/300 ML BAG IVPB ONE (00:17)
[2021-09-26 06:39] LABS: Hematocrit 27 % (35-47); Mean Corpuscular HGB Conc 33 g/dL (31-36); Mean Corpuscular Hemoglobin 34 pg (27-31); Mean Corpuscular Volume 102 fL (80-97); Mean Platelet Volume 8.1 fL (7.4-10.4); Platelet Count 188 10^3/uL (150-450); Red Blood Count 2.65 10^6 /uL (3.70-4.87); Red Cell Distribution Width 16 % (10-15); White Blood Count 11.4 10^3/uL (3.5-10.8)
[2021-09-26 07:00] LABS: ALT 93 U/L (7-52); AST 50 U/L (13-39); Albumin 2.9 g/dL (3.2-5.2); Albumin/Globulin Ratio 1.3 (1-3); Alkaline Phosphatase 110 U/L (35-149); Anion Gap 10 mmol/L (2-11); Blood Urea Nitrogen 56 mg/dL (6-24); C Reactive Protein 128.22 mg/L (<8.01); CO2 Carbon Dioxide 22 mmol/L (22-32); Calcium 8.6 mg/dL (8.6-10.3); Chloride 109 mmol/L (101-111); Globulin 2.3 g/dL (2-4); Glucose 51 mg/dL (70-100); Magnesium 2.2 mg/dL (1.9-2.7); Potassium 3.6 mmol/L (3.5-5.0); Sodium 141 mmol/L (135-145); Total Protein 5.2 g/dL (6.4-8.9); eGFR CKD-EPI 42.9 (>60)
[2021-09-26] MEDS ORDERED: Lactated Ringers 500 ml BAG 500 ML IV ONE (08:21)
[2021-09-26] MEDS ORDERED: Dextrose 50% VIAL 50 ml IV PUSH PRN (09:13)
[2021-09-26] MEDS ORDERED: Vasopressin 100 UNITS in D5W 250 ml BAG 245 ML IV SCH (09:30)
[2021-09-26 09:49] LABS: T4, Total 6.15 mcg/dL (6.09-12.23)
[2021-09-26 09:51] LABS: TSH Ultra Thyroid Stim Horm 2.89 mcIU/mL (0.34-5.60)
[2021-09-26 09:57] LABS: Total T3 31 ng/dL (87-178)
[2021-09-26] MEDS ORDERED: Cefepime ADVAN 1 GM in NS 0.9% 50 ML 50 ML IVPB SCH (10:00)
[2021-09-26 10:32] LABS: Phosphorus 4.5 mg/dL (2.5-5.0)
[2021-09-26] MEDS: Cefepime 1 GM in Dextrose 1 GM/50 ML BAG IV SCH ×2 (10:32→21:00)
[2021-09-26] MEDS: D5W 1000 ml BAG 1,000 ML IV SCH (10:32)
[2021-09-26 10:44] LABS: Folate > 20.00 ng/mL (5.90-24.80)
[2021-09-26 10:44] LABS: Urine Appearance Cloudy; Urine Bilirubin Negative (Negative); Urine Blood Negative (Negative); Urine Color Yellow; Urine Glucose Negative (Negative); Urine Ketones Negative (Negative); Urine Nitrite Negative (Negative); Urine Protein Negative (Negative); Urine Specific Gravity 1.017 (1.002-1.030); Urine Urobilinogen Negative (Negative)
[2021-09-26 10:45] LABS: Vitamin B12 > 1450 pg/mL (180-914)
[2021-09-26] MEDS: Linezolid 600 MG IVPREMIX(*) 600 MG/300 ML BAG IVPB SCH ×2 (10:51→21:00)
[2021-09-26] MEDS ORDERED: Norepinephrine 16MCG/ML BAGD5W 4,000 MCG/250 ML BAG IV SCH ×2 (11:00→18:14)
[2021-09-26] MEDS: CMC:Selenium 200 mcg TAB (NF) PO SCH (11:27)
[2021-09-26] MEDS: Thiamine 100 MG/ML 2 ml VIAL 250 MG in NS 0.9% 100 ml BAG 100 ML IV SCH (11:28)
[2021-09-26] MEDS: Acetylcysteine 600mgCAP(RENAL) PO SCH ×2 (11:28→21:00)
[2021-09-26] MEDS: Enoxaparin 30 MG/0.3 ML SYR SUBCUT SCH (17:10)
[2021-09-26 21:02] LABS: Venous Bicarbonate HCO3 22.7 mmol/L (24-28)
[2021-09-27 04:49] LABS: Hematocrit 29 % (35-47); Hemoglobin 9.9 g/dL (12.0-16.0); Mean Corpuscular HGB Conc 34 g/dL (31-36); Mean Corpuscular Hemoglobin 34 pg (27-31); Mean Corpuscular Volume 102 fL (80-97); Mean Platelet Volume 8.5 fL (7.4-10.4); Platelet Count 208 10^3/uL (150-450); Red Blood Count 2.89 10^6 /uL (3.70-4.87); Red Cell Distribution Width 17 % (10-15); White Blood Count 12.2 10^3/uL (3.5-10.8)
[2021-09-27 05:02] LABS: ABS Eosinophils 0.1 10^3/ul (0-0.6); ABS Lymphocytes 0.7 10^3/ul (1.0-4.8); ABS Monocytes 0.6 10^3/ul (0-0.8); ABS Neutrophils 10.7 10^3/ul (1.5-7.7); ABS Nucleated RBC 0.7 10^3/ul; Eosinophil % 0.8 %; Lymphocyte % 6.1 %; Nucleated Red Blood Cells % 5.9
[2021-09-27 05:15] LABS: Albumin/Globulin Ratio 1.2 (1-3); C Reactive Protein 124.83 mg/L (<8.01); Calcium 8.5 mg/dL (8.6-10.3); Globulin 2.6 g/dL (2-4); Magnesium 2.1 mg/dL (1.9-2.7); Potassium 3.5 mmol/L (3.5-5.0); Total Bilirubin 0.9 mg/dL (0.2-1.0); Total Protein 5.6 g/dL (6.4-8.9)
[2021-09-27] MEDS: Cefepime 1 GM in Dextrose 1 GM/50 ML BAG IV SCH ×2 (08:25→21:43)
[2021-09-27] MEDS: Acetylcysteine 600mgCAP(RENAL) PO SCH ×2 (08:48→20:04)
[2021-09-27] MEDS: CMC:Selenium 200 mcg TAB (NF) PO SCH (08:48)
[2021-09-27] MEDS: Thiamine 100 MG/ML 2 ml VIAL 250 MG in NS 0.9% 100 ml BAG 100 ML IV SCH (09:03)
[2021-09-27] MEDS: Linezolid 600 MG IVPREMIX(*) 600 MG/300 ML BAG IVPB SCH ×2 (09:41→21:46)
[2021-09-27] MEDS ORDERED: Norepinephrine 16MCG/ML BAGD5W 4,000 MCG/250 ML BAG IV SCH (14:57)
[2021-09-27] MEDS: Enoxaparin 30 MG/0.3 ML SYR SUBCUT SCH (17:32)
[2021-09-27] MEDS: D5W 1000 ml BAG 1,000 ML IV SCH (23:08)
[2021-09-28 04:39] LABS: ABS Basophils 0.1 10^3/ul (0-0.2); ABS Eosinophils 0.1 10^3/ul (0-0.6); ABS Lymphocytes 0.6 10^3/ul (1.0-4.8); ABS Monocytes 0.5 10^3/ul (0-0.8); ABS Neutrophils 8.3 10^3/ul (1.5-7.7); ABS Nucleated RBC 0.3 10^3/ul; Eosinophil % 1.5 %; Hematocrit 30 % (35-47); Hemoglobin 9.9 g/dL (12.0-16.0); Lymphocyte % 5.9 %; Mean Corpuscular HGB Conc 33 g/dL (31-36); Mean Corpuscular Hemoglobin 33 pg (27-31); Mean Corpuscular Volume 102 fL (80-97); Mean Platelet Volume 8.7 fL (7.4-10.4); Nucleated Red Blood Cells % 2.7; Platelet Count 180 10^3/uL (150-450); Red Blood Count 2.99 10^6 /uL (3.70-4.87); Red Cell Distribution Width 19 % (10-15); White Blood Count 9.6 10^3/uL (3.5-10.8)
[2021-09-28 05:25] LABS: Blood Urea Nitrogen 33 mg/dL (6-24); C Reactive Protein 96.28 mg/L (<8.01); CO2 Carbon Dioxide 20 mmol/L (22-32); Calcium 8.2 mg/dL (8.6-10.3); Chloride 103 mmol/L (101-111); Glucose 92 mg/dL (70-100); Sodium 132 mmol/L (135-145); eGFR CKD-EPI 70.8 (>60)
[2021-09-28 05:41] LABS: Anion Gap 9 mmol/L (2-11)
[2021-09-28] MEDS ORDERED: NS 0.9% 100 ml BAG 100 ML ONE (09:21)
[2021-09-28] MEDS: Acetylcysteine 600mgCAP(RENAL) PO SCH ×2 (09:38→21:55)
[2021-09-28] MEDS: Cefepime 1 GM in Dextrose 1 GM/50 ML BAG IV SCH ×2 (09:38→21:55)
[2021-09-28] MEDS: CMC:Selenium 200 mcg TAB (NF) PO SCH (09:43)
[2021-09-28] MEDS: Linezolid 600 MG IVPREMIX(*) 600 MG/300 ML BAG IVPB SCH ×2 (10:42→21:41)
[2021-09-28] MEDS: Thiamine 100 MG/ML 2 ml VIAL 250 MG in NS 0.9% 100 ml BAG 100 ML IV SCH (12:00)
[2021-09-28] MEDS: Enoxaparin 30 MG/0.3 ML SYR SUBCUT SCH (18:22)
[2021-09-29 07:14] LABS: ABS Eosinophils 0.1 10^3/ul (0-0.6); ABS Lymphocytes 0.4 10^3/ul (1.0-4.8); ABS Monocytes 0.3 10^3/ul (0-0.8); ABS Neutrophils 5.9 10^3/ul (1.5-7.7); ABS Nucleated RBC 0.2 10^3/ul; Eosinophil % 0.9 %; Hematocrit 29 % (35-47); Hemoglobin 10.2 g/dL (12.0-16.0); Lymphocyte % 5.9 %; Mean Corpuscular HGB Conc 35 g/dL (31-36); Mean Corpuscular Hemoglobin 36 pg (27-31); Mean Corpuscular Volume 103 fL (80-97); Nucleated Red Blood Cells % 2.9; Platelet Count 163 10^3/uL (150-450); Red Blood Count 2.86 10^6 /uL (3.70-4.87); Red Cell Distribution Width 19 % (10-15); White Blood Count 6.7 10^3/uL (3.5-10.8)
[2021-09-29 07:30] LABS: Calcium 8.4 mg/dL (8.6-10.3); Potassium 3.8 mmol/L (3.5-5.0); eGFR CKD-EPI 77.4 (>60)
[2021-09-29] MEDS: CMC:Selenium 200 mcg TAB (NF) PO SCH (08:39)
[2021-09-29] MEDS: Acetylcysteine 600mgCAP(RENAL) PO SCH ×2 (08:39→21:43)
[2021-09-29] MEDS: Cefepime 1 GM in Dextrose 1 GM/50 ML BAG IV SCH ×2 (10:00→23:03)
[2021-09-29] MEDS: Thiamine 100 MG/ML 2 ml VIAL 250 MG in NS 0.9% 100 ml BAG 100 ML IV SCH (10:48)
[2021-09-29] MEDS: Linezolid 600 MG IVPREMIX(*) 600 MG/300 ML BAG IVPB SCH (11:30)
[2021-09-29] MEDS: Enoxaparin 30 MG/0.3 ML SYR SUBCUT SCH (17:23)
[2021-09-30 06:35] LABS: C Reactive Protein 67.08 mg/L (<8.01); Calcium 8.6 mg/dL (8.6-10.3); Phosphorus 2.8 mg/dL (2.5-5.0); Potassium 3.8 mmol/L (3.5-5.0); eGFR CKD-EPI 83.9 (>60)
[2021-09-30 10:17] LABS: PCO2 Arterial 47 mmHg (35-45); PO2 Arterial 64 mmHg (80-100)
[2021-09-30] MEDS: Acetylcysteine 600mgCAP(RENAL) PO SCH ×2 (10:36→20:14)
[2021-09-30] MEDS: Cefepime 1 GM in Dextrose 1 GM/50 ML BAG IV SCH ×2 (10:36→21:29)
[2021-09-30] MEDS: CMC:Selenium 200 mcg TAB (NF) PO SCH (10:37)
[2021-09-30 10:38] LABS: ABS Lymphocytes 0.4 10^3/ul (1.0-4.8); ABS Monocytes 0.3 10^3/ul (0-0.8); ABS Neutrophils 4.4 10^3/ul (1.5-7.7); ABS Nucleated RBC 0.1 10^3/ul; Eosinophil % 0.9 %; Hematocrit 30 % (35-47); Hemoglobin 9.8 g/dL (12.0-16.0); Mean Corpuscular HGB Conc 33 g/dL (31-36); Mean Corpuscular Hemoglobin 33 pg (27-31); Mean Corpuscular Volume 101 fL (80-97); Mean Platelet Volume 8.5 fL (7.4-10.4); Nucleated Red Blood Cells % 1.8; Platelet Count 161 10^3/uL (150-450); Red Blood Count 2.98 10^6 /uL (3.70-4.87); Red Cell Distribution Width 18 % (10-15); White Blood Count 5.1 10^3/uL (3.5-10.8)
[2021-09-30 11:10] LABS: Albumin 2.6 g/dL (3.2-5.2); Direct Bilirubin 0.2 mg/dL (0.03-0.18); Globulin 2.5 g/dL (2-4); Indirect Bilirubin 0.6 mg/dL (0.3-1.0); Total Bilirubin 0.8 mg/dL (0.2-1.0); Total Protein 5.1 g/dL (6.4-8.9)
[2021-09-30] MEDS: Thiamine 100 MG/ML 2 ml VIAL 250 MG in NS 0.9% 100 ml BAG 100 ML IV SCH (12:25)
[2021-09-30 14:15] LABS: Urine Appearance Clear; Urine Bilirubin Negative (Negative); Urine Blood Negative (Negative); Urine Color Yellow; Urine Glucose 1+(50 mg/dL) (Negative); Urine Ketones Trace (Negative); Urine Nitrite Negative (Negative); Urine Protein Negative (Negative); Urine Specific Gravity 1.016 (1.002-1.030); Urine Urobilinogen Negative (Negative)
[2021-09-30] MEDS: Enoxaparin 30 MG/0.3 ML SYR SUBCUT SCH (16:38)
[2021-10-01 06:16] LABS: ABS Eosinophils 0.1 10^3/ul (0-0.6); ABS Lymphocytes 0.4 10^3/ul (1.0-4.8); ABS Monocytes 0.4 10^3/ul (0-0.8); ABS Neutrophils 4.7 10^3/ul (1.5-7.7); ABS Nucleated RBC 0.1 10^3/ul; Eosinophil % 0.9 %; Hematocrit 37 % (35-47); Hemoglobin 11.5 g/dL (12.0-16.0); Lymphocyte % 6.7 %; Mean Corpuscular HGB Conc 32 g/dL (31-36); Mean Corpuscular Hemoglobin 34 pg (27-31); Mean Corpuscular Volume 106 fL (80-97); Mean Platelet Volume 8.6 fL (7.4-10.4); Nucleated Red Blood Cells % 1.4; Platelet Count 129 10^3/uL (150-450); Red Blood Count 3.43 10^6 /uL (3.70-4.87); Red Cell Distribution Width 20 % (10-15); White Blood Count 5.5 10^3/uL (3.5-10.8)
[2021-10-01 06:48] LABS: CO2 Carbon Dioxide 21 mmol/L (22-32); Calcium 8.5 mg/dL (8.6-10.3); Chloride 105 mmol/L (101-111); Magnesium 2.1 mg/dL (1.9-2.7); Sodium 131 mmol/L (135-145)
[2021-10-01 06:52] LABS: Anion Gap 5 mmol/L (2-11)
[2021-10-01 06:53] LABS: Blood Urea Nitrogen 18 mg/dL (6-24); Glucose 80 mg/dL (70-100); eGFR CKD-EPI 85.4 (>60)
[2021-10-01] MEDS: CMC:Selenium 200 mcg TAB (NF) PO SCH (10:14)
[2021-10-01] MEDS: Cefepime 1 GM in Dextrose 1 GM/50 ML BAG IV SCH ×2 (10:14→21:46)
[2021-10-01] MEDS: Acetylcysteine 600mgCAP(RENAL) PO SCH ×2 (10:14→21:27)
[2021-10-01] MEDS: Thiamine 100 MG/ML 2 ml VIAL 250 MG in NS 0.9% 100 ml BAG 100 ML IV SCH (11:53)
[2021-10-01] MEDS: Enoxaparin 30 MG/0.3 ML SYR SUBCUT SCH (17:45)
[2021-10-02 05:57] LABS: ABS Lymphocytes 0.2 10^3/ul (1.0-4.8); ABS Monocytes 0.3 10^3/ul (0-0.8); Eosinophil % 0.7 %; Hematocrit 35 % (35-47); Hemoglobin 11.8 g/dL (12.0-16.0); Lymphocyte % 4.8 %; Mean Corpuscular HGB Conc 34 g/dL (31-36); Mean Corpuscular Hemoglobin 35 pg (27-31); Mean Corpuscular Volume 104 fL (80-97); Mean Platelet Volume 9.2 fL (7.4-10.4); Platelet Count 142 10^3/uL (150-450); Red Blood Count 3.37 10^6 /uL (3.70-4.87); Red Cell Distribution Width 20 % (10-15); White Blood Count 4.5 10^3/uL (3.5-10.8)
[2021-10-02 06:35] LABS: Calcium 8.5 mg/dL (8.6-10.3)
[2021-10-02 06:40] LABS: Phosphorus 2.3 mg/dL (2.5-5.0); eGFR CKD-EPI 95.6 (>60)
[2021-10-02] MEDS ORDERED: Sodium Phosphate IV 15 MMOLE in NS 0.9% 250 ml 250 ML IV ONE (07:30)
[2021-10-02] MEDS ORDERED: Furosemide 20 mg/2 ml IV VIAL IV ONE (08:25)
[2021-10-02] MEDS: Cefepime 1 GM in Dextrose 1 GM/50 ML BAG IV SCH ×2 (10:51→21:18)
[2021-10-02] MEDS: Acetylcysteine 600mgCAP(RENAL) PO SCH ×2 (11:08→21:16)
[2021-10-02] MEDS: CMC:Selenium 200 mcg TAB (NF) PO SCH (11:09)
[2021-10-02] MEDS: Thiamine 100 MG/ML 2 ml VIAL 250 MG in NS 0.9% 100 ml BAG 100 ML IV SCH (12:28)
[2021-10-02 16:08] LABS: C Reactive Protein 33.61 mg/L (<8.01)
[2021-10-02 16:44] LABS: TSH Ultra Thyroid Stim Horm 5.19 mcIU/mL (0.34-5.60)
[2021-10-02 16:45] LABS: Free T4 0.92 ng/dL (0.61-1.12)
[2021-10-02] MEDS: Enoxaparin 30 MG/0.3 ML SYR SUBCUT SCH (18:06)
[2021-10-03 05:45] LABS: ABS Lymphocytes 0.3 10^3/ul (1.0-4.8); ABS Monocytes 0.4 10^3/ul (0-0.8); ABS Neutrophils 3.7 10^3/ul (1.5-7.7); Eosinophil % 0.4 %; Hematocrit 36 % (35-47); Hemoglobin 12.2 g/dL (12.0-16.0); Lymphocyte % 6.9 %; Mean Corpuscular HGB Conc 34 g/dL (31-36); Mean Corpuscular Hemoglobin 36 pg (27-31); Mean Corpuscular Volume 104 fL (80-97); Nucleated Red Blood Cells % 0.6; Platelet Count 127 10^3/uL (150-450); Red Blood Count 3.42 10^6 /uL (3.70-4.87); Red Cell Distribution Width 19 % (10-15); White Blood Count 4.4 10^3/uL (3.5-10.8)
[2021-10-03 06:14] LABS: Calcium 8.8 mg/dL (8.6-10.3); Magnesium 1.9 mg/dL (1.9-2.7); Potassium 3.9 mmol/L (3.5-5.0)
[2021-10-03 06:20] LABS: eGFR CKD-EPI 87.4 (>60)
[2021-10-03] MEDS: Thiamine 100 MG/ML 2 ml VIAL 250 MG in NS 0.9% 100 ml BAG 100 ML IV SCH (10:56)
[2021-10-03 11:03] LABS: C Reactive Protein 31.49 mg/L (<8.01)
[2021-10-03] MEDS: Pantoprazole VIAL 40 MG VIAL IV SCH (11:55)
[2021-10-03] MEDS: Acetylcysteine 600mgCAP(RENAL) PO SCH (12:01)
[2021-10-03 12:02] LABS: PCO2 Arterial 69 mmHg (35-45); PO2 Arterial 108 mmHg (80-100)
[2021-10-03] MEDS: CMC:Selenium 200 mcg TAB (NF) PO SCH (12:14)
[2021-10-03] MEDS ORDERED: Vancomycin 1,000 MG in NS 0.9% 250 ml 250 ML IVPB ONE (16:05)
[2021-10-03] MEDS ORDERED: Piperacillin/Tazobac ADVAN 3.375 GM in NS 0.9% 100 ml BAG 100 ML IV ONE (16:05)
[2021-10-03 16:07] LABS: PCO2 Arterial 55 mmHg (35-45); PO2 Arterial 117 mmHg (80-100)
[2021-10-03] MEDS ORDERED: Vancomycin per Pharmacy 1 EA NOTE FOLLOW UP SCH (17:00)
[2021-10-03] MEDS ORDERED: Zosyn per Pharmacy NOTE FOLLOW UP SCH (17:00)
[2021-10-03] MEDS ORDERED: Norepinephrine 16MCG/ML BAGD5W 4,000 MCG/250 ML BAG IV SCH (18:00)
[2021-10-03] MEDS: Enoxaparin 30 MG/0.3 ML SYR SUBCUT SCH (18:40)
[2021-10-03] MEDS: Hydrocortisone INJ 100 MG/2ML 2 ML VIAL IV SCH (18:41)
[2021-10-03 20:19] LABS: Urine Appearance Cloudy; Urine Bilirubin Negative (Negative); Urine Blood Negative (Negative); Urine Color Yellow; Urine Glucose Negative (Negative); Urine Ketones Trace (Negative); Urine Nitrite Negative (Negative); Urine Protein 1+(30 mg/dL) (Negative); Urine Specific Gravity 1.014 (1.002-1.030); Urine Urobilinogen Negative (Negative)
[2021-10-03 20:27] LABS: Urine Bacteria 1+ (Absent); Urine Red Blood Cell 3+(>10/hpf) (Absent); Urine Squamous Epithelial Cell Present (Absent); Urine White Blood Cell Trace(0-5/hpf) (Absent); Urine Yeast Present (Absent)
[2021-10-03] MEDS ORDERED: ZOSYN 3.375 GM Q8H per EXTENDED INFUSION IV SCH (20:30)
[2021-10-03] MEDS ORDERED: ZOSYN 3.375 GM x ONE DOSE over 30 miuntes IV (23:00)
[2021-10-04] MEDS: Hydrocortisone INJ 100 MG/2ML 2 ML VIAL IV SCH ×3 (01:54→18:14)
[2021-10-04] MEDS: ZOSYN 3.375 GM Q8H per EXTENDED INFUSION IV SCH ×3 (02:48→18:15)
[2021-10-04 04:10] LABS: ABS Lymphocytes 0.2 10^3/ul (1.0-4.8); ABS Monocytes 0.2 10^3/ul (0-0.8); ABS Neutrophils 3.6 10^3/ul (1.5-7.7); Hematocrit 34 % (35-47); Hemoglobin 11.1 g/dL (12.0-16.0); Mean Corpuscular HGB Conc 33 g/dL (31-36); Mean Corpuscular Hemoglobin 34 pg (27-31); Mean Corpuscular Volume 104 fL (80-97); Mean Platelet Volume 9.2 fL (7.4-10.4); Nucleated Red Blood Cells % 0.4; Platelet Count 115 10^3/uL (150-450); Red Blood Count 3.24 10^6 /uL (3.70-4.87); Red Cell Distribution Width 19 % (10-15)
[2021-10-04] MEDS: Vancomycin 750 MG in NS 0.9% 250 ML IVPB SCH ×2 (04:16→16:07)
[2021-10-04 04:56] LABS: Calcium 8.5 mg/dL (8.6-10.3); Magnesium 1.9 mg/dL (1.9-2.7); eGFR CKD-EPI 78.7 (>60)
[2021-10-04 08:38] LABS: PCO2 Arterial 46 mmHg (35-45); PO2 Arterial 89 mmHg (80-100)
[2021-10-04] MEDS ORDERED: Furosemide 40 mg/4 ml IV VIAL IV ONE (12:41)
[2021-10-04] MEDS ORDERED: Furosemide 40 mg/4 ml IV VIAL ONE (12:48)
[2021-10-04] MEDS: Pantoprazole VIAL 40 MG VIAL IV SCH (12:50)
[2021-10-04] MEDS: Thiamine 100 MG/ML 2 ml VIAL 250 MG in NS 0.9% 100 ml BAG 100 ML IV SCH (13:32)
[2021-10-04] MEDS: Enoxaparin 30 MG/0.3 ML SYR SUBCUT SCH (18:14)
[2021-10-04 20:53] LABS: PCO2 Arterial 42 mmHg (35-45); PO2 Arterial 68 mmHg (80-100)
[2021-10-05] MEDS: Hydrocortisone INJ 100 MG/2ML 2 ML VIAL IV SCH ×4 (03:23→18:23)
[2021-10-05] MEDS: ZOSYN 3.375 GM Q8H per EXTENDED INFUSION IV SCH ×3 (03:23→20:34)
[2021-10-05] MEDS: Vancomycin 750 MG in NS 0.9% 250 ML IVPB SCH ×2 (05:17→19:39)
[2021-10-05 05:24] LABS: ABS Lymphocytes 0.5 10^3/ul (1.0-4.8); ABS Monocytes 0.5 10^3/ul (0-0.8); ABS Neutrophils 5.5 10^3/ul (1.5-7.7); ABS Nucleated RBC 0.1 10^3/ul; Hematocrit 33 % (35-47); Hemoglobin 10.8 g/dL (12.0-16.0); Lymphocyte % 7.6 %; Mean Corpuscular HGB Conc 32 g/dL (31-36); Mean Corpuscular Hemoglobin 32 pg (27-31); Mean Corpuscular Volume 100 fL (80-97); Mean Platelet Volume 8.8 fL (7.4-10.4); Nucleated Red Blood Cells % 0.8; Platelet Count 110 10^3/uL (150-450); Red Blood Count 3.35 10^6 /uL (3.70-4.87); Red Cell Distribution Width 20 % (10-15); White Blood Count 6.5 10^3/uL (3.5-10.8)
[2021-10-05 05:58] LABS: Calcium 8.4 mg/dL (8.6-10.3); Magnesium 1.8 mg/dL (1.9-2.7); Potassium 3.1 mmol/L (3.5-5.0); eGFR CKD-EPI 61.7 (>60)
[2021-10-05] MEDS ORDERED: Magnesium Sulfate IV 1GM/100ML 1 GM/100 ML BAG IV ONE (07:41)
[2021-10-05] MEDS: KCL 20 MEQ/100 ML IVPREMIX 20 MEQ/100 ML BAG IV SCH ×4 (08:36→13:15)
[2021-10-05] MEDS ORDERED: Furosemide 40 mg/4 ml IV VIAL IV SLOW PU ONE (08:43)
[2021-10-05] MEDS: Thiamine 100 MG/ML 2 ml VIAL 250 MG in NS 0.9% 100 ml BAG 100 ML IV SCH (09:54)
[2021-10-05] MEDS: Pantoprazole VIAL 40 MG VIAL IV SCH (13:15)
[2021-10-05] MEDS ORDERED: Vancomycin Trough Check NOTE FOLLOW UP ONE (15:30)
[2021-10-05] MEDS: Enoxaparin 30 MG/0.3 ML SYR SUBCUT SCH (18:23)
[2021-10-05 18:43] LABS: Calcium 8.3 mg/dL (8.6-10.3); Potassium 4.3 mmol/L (3.5-5.0); eGFR CKD-EPI 56.6 (>60)
[2021-10-05] MEDS ORDERED: Vancomycin 750 MG in NS 0.9% 250 ML IVPB SCH (20:00)
[2021-10-05] MEDS: Vancomycin 500 MG in NS 0.9% 250 ML IVPB SCH (20:34)
[2021-10-06] MEDS: ZOSYN 3.375 GM Q8H per EXTENDED INFUSION IV SCH ×3 (03:26→18:33)
[2021-10-06] MEDS: Hydrocortisone INJ 100 MG/2ML 2 ML VIAL IV SCH ×3 (03:26→18:33)
[2021-10-06 07:34] LABS: ABS Lymphocytes 0.4 10^3/ul (1.0-4.8); ABS Monocytes 0.5 10^3/ul (0-0.8); ABS Neutrophils 6.8 10^3/ul (1.5-7.7); ABS Nucleated RBC 0.1 10^3/ul; Hematocrit 36 % (35-47); Hemoglobin 11.5 g/dL (12.0-16.0); Lymphocyte % 5.1 %; Mean Corpuscular HGB Conc 32 g/dL (31-36); Mean Corpuscular Hemoglobin 33 pg (27-31); Mean Corpuscular Volume 103 fL (80-97); Mean Platelet Volume 9.1 fL (7.4-10.4); Nucleated Red Blood Cells % 0.8; Platelet Count 105 10^3/uL (150-450); Red Blood Count 3.51 10^6 /uL (3.70-4.87); Red Cell Distribution Width 20 % (10-15); White Blood Count 7.7 10^3/uL (3.5-10.8)
[2021-10-06 08:01] LABS: Calcium 8.1 mg/dL (8.6-10.3); Potassium 3.5 mmol/L (3.5-5.0); eGFR CKD-EPI 53.4 (>60)
[2021-10-06] MEDS: Vancomycin 500 MG in NS 0.9% 250 ML IVPB SCH (08:49)
[2021-10-06] MEDS ORDERED: KCL 20 MEQ/100 ML IVPREMIX 20 MEQ/100 ML BAG IV SCH (09:00)
[2021-10-06] MEDS: KCL premix 10 MEQ/50 ML x 4 RUNS IV SCH ×4 (09:36→15:10)
[2021-10-06] MEDS: Thiamine 100 MG/ML 2 ml VIAL 250 MG in NS 0.9% 100 ml BAG 100 ML IV SCH (10:28)
[2021-10-06] MEDS: Pantoprazole VIAL 40 MG VIAL IV SCH (14:24)
[2021-10-06] MEDS: Enoxaparin 30 MG/0.3 ML SYR SUBCUT SCH (18:32)
[2021-10-07] MEDS: Hydrocortisone INJ 100 MG/2ML 2 ML VIAL IV SCH ×3 (03:15→21:52)
[2021-10-07] MEDS: ZOSYN 3.375 GM Q8H per EXTENDED INFUSION IV SCH ×3 (03:39→18:14)
[2021-10-07] MEDS ORDERED: Vancomycin Trough Check NOTE FOLLOW UP ONE (07:30)
[2021-10-07 07:36] LABS: ABS Lymphocytes 0.4 10^3/ul (1.0-4.8); ABS Monocytes 0.5 10^3/ul (0-0.8); ABS Neutrophils 7.2 10^3/ul (1.5-7.7); ABS Nucleated RBC 0.1 10^3/ul; Eosinophil % 0.1 %; Hematocrit 37 % (35-47); Hemoglobin 11.8 g/dL (12.0-16.0); Lymphocyte % 4.6 %; Mean Corpuscular HGB Conc 32 g/dL (31-36); Mean Corpuscular Hemoglobin 33 pg (27-31); Mean Corpuscular Volume 102 fL (80-97); Mean Platelet Volume 9.7 fL (7.4-10.4); Nucleated Red Blood Cells % 0.7; Platelet Count 99 10^3/uL (150-450); Red Blood Count 3.58 10^6 /uL (3.70-4.87); Red Cell Distribution Width 20 % (10-15); White Blood Count 8.1 10^3/uL (3.5-10.8)
[2021-10-07] MEDS ORDERED: Furosemide 20 mg/2 ml IV VIAL IV ONE (08:14)
[2021-10-07 08:17] LABS: Blood Urea Nitrogen 28 mg/dL (6-24); CO2 Carbon Dioxide 31 mmol/L (22-32); Calcium 8.7 mg/dL (8.6-10.3); Chloride 106 mmol/L (101-111); Glucose 102 mg/dL (70-100); Sodium 145 mmol/L (135-145); eGFR CKD-EPI 61.7 (>60)
[2021-10-07 09:07] LABS: Anion Gap 8 mmol/L (2-11)
[2021-10-07] MEDS: Thiamine 100 MG/ML 2 ml VIAL 250 MG in NS 0.9% 100 ml BAG 100 ML IV SCH (10:03)
[2021-10-07] MEDS: Pantoprazole VIAL 40 MG VIAL IV SCH (12:52)
[2021-10-07] MEDS: Enoxaparin 30 MG/0.3 ML SYR SUBCUT SCH (18:14)
[2021-10-08] MEDS: ZOSYN 3.375 GM Q8H per EXTENDED INFUSION IV SCH ×3 (03:03→21:30)
[2021-10-08 05:57] LABS: ABS Lymphocytes 0.4 10^3/ul (1.0-4.8); ABS Monocytes 0.4 10^3/ul (0-0.8); ABS Neutrophils 6.6 10^3/ul (1.5-7.7); Hematocrit 34 % (35-47); Hemoglobin 11.2 g/dL (12.0-16.0); Lymphocyte % 5.9 %; Mean Corpuscular HGB Conc 33 g/dL (31-36); Mean Corpuscular Hemoglobin 33 pg (27-31); Mean Corpuscular Volume 100 fL (80-97); Nucleated Red Blood Cells % 0.4; Platelet Count 79 10^3/uL (150-450); Red Blood Count 3.37 10^6 /uL (3.70-4.87); Red Cell Distribution Width 19 % (10-15); White Blood Count 7.5 10^3/uL (3.5-10.8)
[2021-10-08 06:36] LABS: Calcium 8.5 mg/dL (8.6-10.3); Magnesium 1.9 mg/dL (1.9-2.7); Phosphorus 2.3 mg/dL (2.5-5.0); Potassium 3.1 mmol/L (3.5-5.0)
[2021-10-08] MEDS ORDERED: Magnesium Sulfate IV 1GM/100ML 1 GM/100 ML BAG IV ONE (07:53)
[2021-10-08] MEDS ORDERED: Potassium Chloride LIQUID 20 MEQ/15 ML LIQUID PO ONE (07:53)
[2021-10-08] MEDS ORDERED: KCL 20 MEQ/100 ML IVPREMIX 20 MEQ/100 ML BAG IV SCH (08:00)
[2021-10-08] MEDS ORDERED: Potassium Phosphate IV 15 MMOLE in NS 0.9% 250 ml 250 ML IVPB ONE (09:00)
[2021-10-08] MEDS ORDERED: Furosemide 20 mg/2 ml IV VIAL IV SLOW PU ONE (09:53)
[2021-10-08] MEDS: Thiamine 100 MG/ML 2 ml VIAL 250 MG in NS 0.9% 100 ml BAG 100 ML IV SCH (10:28)
[2021-10-08] MEDS: Hydrocortisone INJ 100 MG/2ML 2 ML VIAL IV SCH ×2 (10:28→10:44)
[2021-10-08] MEDS: KCL premix 10 MEQ/50 ML x 4 RUNS IV SCH ×4 (10:28→15:02)
[2021-10-08] MEDS: Pantoprazole VIAL 40 MG VIAL IV SCH (11:40)
[2021-10-08 12:39] LABS: C Reactive Protein 10.49 mg/L (<8.01)
[2021-10-08 16:00] LABS: CO2 Carbon Dioxide 22 mmol/L (22-32); Calcium 8.6 mg/dL (8.6-10.3); Chloride 108 mmol/L (101-111); Sodium 143 mmol/L (135-145)
[2021-10-08 16:03] LABS: Anion Gap 13 mmol/L (2-11)
[2021-10-08 16:05] LABS: Blood Urea Nitrogen 31 mg/dL (6-24); Glucose 138 mg/dL (70-100)
[2021-10-08] MEDS: Enoxaparin 30 MG/0.3 ML SYR SUBCUT SCH (18:15)
[2021-10-09] MEDS: ZOSYN 3.375 GM Q8H per EXTENDED INFUSION IV SCH (05:05)
[2021-10-09 07:12] LABS: ABS Lymphocytes 0.3 10^3/ul (1.0-4.8); ABS Monocytes 0.2 10^3/ul (0-0.8); ABS Neutrophils 7.5 10^3/ul (1.5-7.7); ABS Nucleated RBC 0.1 10^3/ul; Hematocrit 32 % (35-47); Hemoglobin 10.6 g/dL (12.0-16.0); Lymphocyte % 3.9 %; Mean Corpuscular HGB Conc 33 g/dL (31-36); Mean Corpuscular Hemoglobin 35 pg (27-31); Mean Corpuscular Volume 104 fL (80-97); Nucleated Red Blood Cells % 0.7; Red Blood Count 3.06 10^6 /uL (3.70-4.87); Red Cell Distribution Width 19 % (10-15)
[2021-10-09 07:49] LABS: Calcium 8.5 mg/dL (8.6-10.3); Magnesium 2.1 mg/dL (1.9-2.7); Mean Platelet Volume 9.9 fL (7.4-10.4); Platelet Count 87 10^3/uL (150-450); Potassium 3.9 mmol/L (3.5-5.0); eGFR CKD-EPI 59.4 (>60)
[2021-10-09] MEDS: Hydrocortisone INJ 100 MG/2ML 2 ML VIAL IV SCH (09:37)
[2021-10-09] MEDS: Thiamine 100 MG/ML 2 ml VIAL 250 MG in NS 0.9% 100 ml BAG 100 ML IV SCH (09:51)
[2021-10-09] MEDS ORDERED: Furosemide 20 mg/2 ml IV VIAL IV ONE (09:54)
[2021-10-09] MEDS: Pantoprazole VIAL 40 MG VIAL IV SCH (14:00)
[2021-10-09] MEDS: Enoxaparin 30 MG/0.3 ML SYR SUBCUT SCH (19:38)
[2021-10-10 05:45] LABS: ABS Lymphocytes 0.2 10^3/ul (1.0-4.8); ABS Monocytes 0.3 10^3/ul (0-0.8); ABS Neutrophils 6.8 10^3/ul (1.5-7.7); ABS Nucleated RBC 0.1 10^3/ul; Eosinophil % 0.1 %; Hematocrit 37 % (35-47); Hemoglobin 12.8 g/dL (12.0-16.0); Lymphocyte % 3.2 %; Mean Corpuscular HGB Conc 34 g/dL (31-36); Mean Corpuscular Hemoglobin 35 pg (27-31); Mean Corpuscular Volume 103 fL (80-97); Mean Platelet Volume 9.5 fL (7.4-10.4); Platelet Count 87 10^3/uL (150-450); Red Blood Count 3.64 10^6 /uL (3.70-4.87); Red Cell Distribution Width 20 % (10-15); White Blood Count 7.4 10^3/uL (3.5-10.8)
[2021-10-10 05:50] LABS: Calcium 8.7 mg/dL (8.6-10.3); Potassium 3.4 mmol/L (3.5-5.0)
[2021-10-10 05:56] LABS: eGFR CKD-EPI 66.9 (>60)
[2021-10-10] MEDS ORDERED: Potassium Chloride LIQUID 20 MEQ/15 ML LIQUID PEG TUBE ONE (07:59)
[2021-10-10 08:24] LABS: Albumin 2.9 g/dL (3.2-5.2); Direct Bilirubin 0.2 mg/dL (0.03-0.18); Indirect Bilirubin 0.7 mg/dL (0.3-1.0); Total Bilirubin 0.9 mg/dL (0.2-1.0)
[2021-10-10] MEDS ORDERED: Hydrocortisone INJ 100 MG/2ML 2 ML VIAL IV SCH (09:00)
[2021-10-10] MEDS: Thiamine 100 MG/ML 2 ml VIAL 250 MG in NS 0.9% 100 ml BAG 100 ML IV SCH (09:51)
[2021-10-10] MEDS: Pantoprazole VIAL 40 MG VIAL IV SCH (11:59)
[2021-10-10] MEDS ORDERED: Metoprolol Tartrate 5 mg VIAL 5 ml VIAL (1 mg/ml) IV PRN (16:48)
[2021-10-10] MEDS: Enoxaparin 30 MG/0.3 ML SYR SUBCUT SCH (17:13)
[2021-10-10] MEDS: Albumin Human 5% 12.5 GM/250 ML BTL IV SCH ×2 (20:01→22:45)
[2021-10-10] MEDS ORDERED: Furosemide 20 mg/2 ml IV VIAL IV ONE (21:23)
[2021-10-10] MEDS ORDERED: Furosemide 20 mg/2 ml IV VIAL IV SLOW PU ONE (21:23)
[2021-10-10] MEDS ORDERED: Furosemide 20 mg/2 ml IV VIAL ONE (21:30)
[2021-10-11 06:58] LABS: Hematocrit 34 % (35-47); Hemoglobin 11.5 g/dL (12.0-16.0); Mean Corpuscular HGB Conc 34 g/dL (31-36); Mean Corpuscular Hemoglobin 36 pg (27-31); Mean Corpuscular Volume 105 fL (80-97); Mean Platelet Volume 10.1 fL (7.4-10.4); Platelet Count 92 10^3/uL (150-450); Red Cell Distribution Width 20 % (10-15); White Blood Count 5.8 10^3/uL (3.5-10.8)
[2021-10-11 07:19] LABS: Albumin 2.8 g/dL (3.2-5.2); CO2 Carbon Dioxide 32 mmol/L (22-32); Calcium 8.3 mg/dL (8.6-10.3); Chloride 108 mmol/L (101-111)
[2021-10-11 07:25] LABS: ALT 42 U/L (7-52); Albumin/Globulin Ratio 1.1 (1-3); Alkaline Phosphatase 125 U/L (35-149); Blood Urea Nitrogen 36 mg/dL (6-24); Globulin 2.6 g/dL (2-4); Glucose 101 mg/dL (70-100); Total Protein 5.4 g/dL (6.4-8.9); eGFR CKD-EPI 68.8 (>60)
[2021-10-11] MEDS ORDERED: Furosemide 40 mg/4 ml IV VIAL IV SLOW PU ONE (07:44)
[2021-10-11 07:46] LABS: Anion Gap 7 mmol/L (2-11); Sodium 147 mmol/L (135-145)
[2021-10-11] MEDS ORDERED: Levalbuterol 0.63MG/3ML NEB UNIT OF USE INH PRN (07:54)
[2021-10-11] MEDS: Hydrocortisone INJ 100 MG/2ML 2 ML VIAL IV SCH ×2 (08:49→23:28)
[2021-10-11] MEDS: Thiamine 100 MG/ML 2 ml VIAL 250 MG in NS 0.9% 100 ml BAG 100 ML IV SCH (11:14)
[2021-10-11] MEDS: Pantoprazole VIAL 40 MG VIAL IV SCH (12:47)
[2021-10-11] MEDS: Enoxaparin 30 MG/0.3 ML SYR SUBCUT SCH (18:01)
[2021-10-12 04:30] LABS: ABS Lymphocytes 0.1 10^3/ul (1.0-4.8); ABS Monocytes 0.3 10^3/ul (0-0.8); ABS Neutrophils 5.6 10^3/ul (1.5-7.7); ABS Nucleated RBC 0.1 10^3/ul; Hematocrit 33 % (35-47); Hemoglobin 10.8 g/dL (12.0-16.0); Lymphocyte % 2.4 %; Mean Corpuscular HGB Conc 33 g/dL (31-36); Mean Corpuscular Hemoglobin 34 pg (27-31); Mean Corpuscular Volume 105 fL (80-97); Mean Platelet Volume 10.3 fL (7.4-10.4); Platelet Count 114 10^3/uL (150-450); Red Blood Count 3.14 10^6 /uL (3.70-4.87); Red Cell Distribution Width 20 % (10-15)
[2021-10-12 04:48] LABS: Calcium 8.2 mg/dL (8.6-10.3); Magnesium 1.9 mg/dL (1.9-2.7); Phosphorus 3.7 mg/dL (2.5-5.0); eGFR CKD-EPI 66.9 (>60)
[2021-10-12] MEDS ORDERED: Potassium Chloride LIQUID 20 MEQ/15 ML LIQUID PO ONE (07:33)
[2021-10-12] MEDS ORDERED: Magnesium Sulfate IV 1GM/100ML 1 GM/100 ML BAG IV ONE (07:35)
[2021-10-12] MEDS: KCL 20 MEQ/100 ML IVPREMIX 20 MEQ/100 ML BAG IV SCH ×3 (07:49→15:20)
[2021-10-12] MEDS: Hydrocortisone INJ 100 MG/2ML 2 ML VIAL IV SCH (07:50)
[2021-10-12] MEDS ORDERED: Furosemide 40 mg/4 ml IV VIAL IV SLOW PU ONE (10:11)
[2021-10-12] MEDS: Pantoprazole VIAL 40 MG VIAL IV SCH (11:23)
[2021-10-12] MEDS: Thiamine 100 MG/ML 2 ml VIAL 250 MG in NS 0.9% 100 ml BAG 100 ML IV SCH (11:33)
[2021-10-12] MEDS ORDERED: KCL 20 MEQ/100 ML IVPREMIX 20 MEQ/100 ML BAG ONE (15:13)
[2021-10-12 15:27] LABS: Calcium 8.5 mg/dL (8.6-10.3); Potassium 4.2 mmol/L (3.5-5.0); eGFR CKD-EPI 72.9 (>60)
[2021-10-12] MEDS: Enoxaparin 30 MG/0.3 ML SYR SUBCUT SCH (18:28)
[2021-10-12] MEDS ORDERED: Piperacillin/Tazobac ADVAN 3.375 GM in NS 0.9% 100 ml BAG 100 ML IV ONE (18:28)
[2021-10-12] MEDS ORDERED: Zosyn per Pharmacy NOTE FOLLOW UP SCH (19:00)
[2021-10-13] MEDS: ZOSYN 3.375 GM Q8H per EXTENDED INFUSION IV SCH ×3 (00:23→17:16)
[2021-10-13 04:56] LABS: ABS Lymphocytes 0.2 10^3/ul (1.0-4.8); ABS Monocytes 0.4 10^3/ul (0-0.8); ABS Neutrophils 7.5 10^3/ul (1.5-7.7); ABS Nucleated RBC 0.1 10^3/ul; Eosinophil % 0.1 %; Hematocrit 33 % (35-47); Hemoglobin 10.8 g/dL (12.0-16.0); Lymphocyte % 2.2 %; Mean Corpuscular HGB Conc 32 g/dL (31-36); Mean Corpuscular Hemoglobin 33 pg (27-31); Mean Corpuscular Volume 102 fL (80-97); Mean Platelet Volume 10.2 fL (7.4-10.4); Nucleated Red Blood Cells % 0.9; Platelet Count 115 10^3/uL (150-450); Red Blood Count 3.26 10^6 /uL (3.70-4.87); Red Cell Distribution Width 20 % (10-15); White Blood Count 8.1 10^3/uL (3.5-10.8)
[2021-10-13 05:13] LABS: Calcium 8.4 mg/dL (8.6-10.3); Magnesium 2.2 mg/dL (1.9-2.7); Potassium 3.9 mmol/L (3.5-5.0); eGFR CKD-EPI 55.3 (>60)
[2021-10-13] MEDS: methylPREDNISolone SOD 40 mg/ml 1 ml VIAL IV SCH (08:42)
[2021-10-13] MEDS: Thiamine 100 MG/ML 2 ml VIAL 250 MG in NS 0.9% 100 ml BAG 100 ML IV SCH (13:19)
[2021-10-13] MEDS: Pantoprazole VIAL 40 MG VIAL IV SCH (13:22)
[2021-10-13] MEDS: Acetylcysteine INHALATION SOL 200 MG/ML NEB.SOLN 10 ML INH SCH (14:52)
[2021-10-13] MEDS: Levalbuterol 0.63MG/3ML NEB UNIT OF USE INH SCH ×2 (15:54→19:26)
[2021-10-13] MEDS: Enoxaparin 30 MG/0.3 ML SYR SUBCUT SCH (17:16)
[2021-10-13] MEDS: Mometasone/Formoter 200/5 MDI INH SCH (19:27)
[2021-10-14] MEDS: ZOSYN 3.375 GM Q8H per EXTENDED INFUSION IV SCH ×2 (00:11→07:36)
[2021-10-14] MEDS: Acetylcysteine INH SOL (RT) 200 MG/ML 4 ML VIAL INH SCH ×2 (01:33→08:07)
[2021-10-14] MEDS: Levalbuterol 0.63MG/3ML NEB UNIT OF USE INH SCH ×2 (01:33→08:08)
[2021-10-14] MEDS: Acetylcysteine INHALATION SOL 200 MG/ML NEB.SOLN 10 ML INH SCH (03:50)
[2021-10-14 05:58] LABS: ABS Lymphocytes 0.2 10^3/ul (1.0-4.8); ABS Monocytes 0.2 10^3/ul (0-0.8); ABS Neutrophils 6.8 10^3/ul (1.5-7.7); ABS Nucleated RBC 0.1 10^3/ul; Hematocrit 34 % (35-47); Hemoglobin 10.8 g/dL (12.0-16.0); Lymphocyte % 2.3 %; Mean Corpuscular HGB Conc 32 g/dL (31-36); Mean Corpuscular Hemoglobin 33 pg (27-31); Mean Corpuscular Volume 101 fL (80-97); Nucleated Red Blood Cells % 1.3; Platelet Count 100 10^3/uL (150-450); Red Blood Count 3.33 10^6 /uL (3.70-4.87); Red Cell Distribution Width 21 % (10-15); White Blood Count 7.2 10^3/uL (3.5-10.8)
[2021-10-14 06:49] LABS: Calcium 8.7 mg/dL (8.6-10.3); Magnesium 2.3 mg/dL (1.9-2.7); Potassium 3.8 mmol/L (3.5-5.0); eGFR CKD-EPI 49.4 (>60)
[2021-10-14] MEDS: methylPREDNISolone SOD 40 mg/ml 1 ml VIAL IV SCH (07:36)
[2021-10-14] MEDS: Mometasone/Formoter 200/5 MDI INH SCH (08:08)
[2021-10-14] MEDS ORDERED: Morphine 4 MG/ML VIAL (1 ml) IV PRN (12:28)
[2021-10-14] MEDS ORDERED: Lorazepam PYXIS KEY PRN (12:29)
[2021-10-14] MEDS ORDERED: LORazepam 2 mg VIAL 1 ml IV PUSH PRN (12:29)
[2021-10-14] MEDS: Pantoprazole VIAL 40 MG VIAL IV SCH (12:56)
[2021-10-14] MEDS: Thiamine 100 MG/ML 2 ml VIAL 250 MG in NS 0.9% 100 ml BAG 100 ML IV SCH (12:56)
[2021-10-14 13:48] VITALS: BP 68/36
== END 2021-10-14 16:02 | disposition expired | DRG 189 ==
LOC: SUATTDRO 15:34 → ICU 15:34 → MEDTELE 09-25 13:15 → ICU 09-26 10:02 → MEDTELE 09-28 19:49 → ICU 10-03 14:29 → MEDTELE 10-08 18:03 → ICU 10-11 08:17
PROVIDERS: ADMIT Internal Medicine; ATTEND Internal Medicine